=== PATIENT | female | born 1960 | race Two or more races ===

== ENCOUNTER 2019-06-18 20:04 | Emergency (ER) | payer BC, OTHER ==
[~2019-06-18] VITALS: Ht 147.3 cm; Wt 52.2 kg
[2019-06-18 21:41] LABS: Basophils # (auto) 0 10 ^3/uL (0-0.2); Basophils % (auto) 0.4 % (0.0-2.0); Eosinophils # (auto) 0.1 10 ^3/uL (0-0.8); Eosinophils % (auto) 1.2 % (0.0-7.0); Hematocrit 42.1 % (36.0-46.0); Lymphocytes # (auto) 1.5 10 ^3/uL (0.4-5.4); Lymphocytes % (auto) 13.8 % (10.0-50.0); Mean Corpuscular Hemoglobin 30.2 pg (28.0-32.0); Mean Corpuscular Hgb Conc. 33.3 g/dL (32.0-36.0); Mean Corpuscular Volume 90.7 fL (80.0-100.0); Monocytes # (auto) 0.7 10 ^3/uL (0-1.3); Monocytes % (auto) 6.2 % (0.0-12.0); Neutrophils # (auto) 8.8 10 ^3/uL (1.6-8.6); Neutrophils % (auto) 78.4 % (37.0-80.0); Nucleated Red Blood Cells % 0.1 %; Platelet Count (auto) 266 10^3/uL (140-450); Red Blood Cells 4.64 10^6/uL (4.0-5.20); Red Cell Distribution Width 12.9 % (11.8-14.3); White Blood Cell 11.2 10^3/uL (4.4-10.8)
[2019-06-18 22:02] LABS: Albumin 3.7 g/dL (3.4-5.0); Calcium 8.7 mg/dL (8.5-10.1); Potassium 3.8 mmol/L (3.5-5.1)
[2019-06-18 22:05] LABS: BUN/Creatinine Ratio 20.8; Bilirubin, Total 0.3 mg/dL (0.2-1.0); Total Protein 7.6 g/dL (6.4-8.2)
[2019-06-18 22:35] VITALS: BP 113/72
[2019-06-18 22:43] LABS: Urine Bacteria NONE SEEN /hpf (None Seen); Urine Blood TRACE /uL (Negative); Urine Mucus FEW (None Seen); Urine Specific Gravity 1.031 (1.001-1.035); Urine WBC <1 /hpf (0 - 5)
[2019-06-18] MEDS ORDERED: LIDOCAINE VISCOUS 2% 15ML UD PO ONE (22:45)
[2019-06-18] MEDS ORDERED: ALUM & MAG HYDROX-SIMETH LIQ(MAALOX) 30 ML PO ONE (22:45)
[2019-06-18] MEDS ORDERED: DONNATAL 5ml ORAL Elix (BELLADONNA ALK-PHENOBARB) PO ONE (22:45)
== END 2019-06-18 23:44 | disposition home or self-care (01) ==
LOC: ER 20:05
DX: R10.9 Unspecified abdominal pain (principal); R11.0 Nausea; Z88.6 Allergy status to analgesic agent
CPT/HCPCS: 36415; 74176; 80053; 81001; 85025

== ENCOUNTER 2022-09-08 06:18 | Day surgery (SDC) | payer BC ==
[~2022-09-08] VITALS: Ht 147.3 cm; Wt 50.8 kg
[~2022-09-08 06:18] MED LIST: ALBU0.084 IN; ALBUAER3 IN; DIPH25CA66 PO; IBUP-1678 PO; MAGN400T40 OR; MISC1TAB27 PO; MULT1TAB70 PO; MULT1TAB97 PO; OMEGCAP2 PO; POTA-220 PO; TRIA0.02 EX; [UNRECOGNIZED DRUG - CODE] PO
[2022-09-08] MEDS ORDERED: DexAMETHasone SOD PHOS 4 MG/1ML SDV INJ ONE (06:47)
[2022-09-08] MEDS ORDERED: EPINEPHrine HCL 1 MG/1 ML AMP ONE (06:47)
[2022-09-08] MEDS ORDERED: BUPIVACAINE 0.25% INJ 50ML VIAL ONE (06:48)
[2022-09-08] MEDS ORDERED: SODIUM CHLORIDE LOCK 10 ML ONE (06:52)
[2022-09-08] MEDS ORDERED: PROPOFOL 10 MG/ML 20 ML IV ONE (06:59)
[2022-09-08] MEDS ORDERED: ONDANSETRON HCL 4 MG/2 ML VIAL ONE (07:00)
[2022-09-08] MEDS ORDERED: KETOROLAC TROMETH 30 MG/ML 1ML VIAL ONE (07:00)
[2022-09-08] MEDS ORDERED: DexAMETHasone SOD PHOS 10MG/1ML VIAL INJ ONE (07:00)
[2022-09-08] MEDS ORDERED: GLYCOPYRROLATE 0.2 MG/ML 1ML VIAL ONE (07:00)
[2022-09-08] MEDS ORDERED: LIDOCAINE 2% (LOCAL ANESTH.) PF 5ml SDV ONE (07:00)
[2022-09-08] MEDS ORDERED: ceFAZolin 1GM/50ML 100 ML IV ONE (07:27)
[2022-09-08] MEDS ORDERED: fentaNYL CITRATE 100 MCG/2 ML VL ONE (07:44)
[2022-09-08] MEDS ORDERED: ePHEDrine SULFATE 50 MG/ML AMP ONE (07:57)
[2022-09-08] MEDS ORDERED: BUPIVACAINE HCL 0.25% P/F 10 ML VIAL ONE (08:39)
[2022-09-08] MEDS: HYDROmorphone HCL 2 MG/ML VL/or syr IV PRN ×2 (09:13→09:25)
[2022-09-08] MEDS ORDERED: oxyCODONE HCL 5MG TAB PO PRN (09:15)
[2022-09-08] MEDS ORDERED: ePHEDrine SULFATE 50 MG/ML AMP IV PRN (09:15)
[2022-09-08] MEDS ORDERED: ONDANSETRON HCL 4 MG/2 ML VIAL IV PRN (09:15)
[2022-09-08] MEDS ORDERED: MEPERIDINE HCL (25 MG/ML) 1ML VIAL IM ONE (09:15)
[2022-09-08] MEDS ORDERED: NALOXONE HCL 0.4 MG/ML VIAL IV PRN (09:15)
[2022-09-08] MEDS ORDERED: LABETALOL HCL 5 MG/ML 4ML SYRINGE IV PRN (09:15)
[2022-09-08] MEDS ORDERED: FLUMAZENIL 0.1 MG/ML INJ 10ML MDV IV PRN (09:15)
[2022-09-08] MEDS ORDERED: fentaNYL CITRATE 100 MCG/2 ML VL IV PRN (09:15)
[2022-09-08] MEDS ORDERED: hydrALAZINE HCL 20 MG/ML VL IV PRN (09:15)
[2022-09-08 10:25] VITALS: BP 122/75; PULSE 76; RESP 14; O2SAT 99
== END 2022-09-08 10:25 | disposition home or self-care (01) ==
LOC: SUR 06:18
PROVIDERS: ATTEND Orthopaedic Surgery
DX: S76.312A Strain of muscle, fascia and tendon of the posterior muscle group at thigh level, left thigh, initial encounter (principal); M70.62 Trochanteric bursitis, left hip; X58.XXXA Exposure to other specified factors, initial encounter; Y93.89 Activity, other specified; Y92.89 Other specified places as the place of occurrence of the external cause; Y99.8 Other external cause status
CPT/HCPCS: 27062; 27299; C1713; J0171; J0690; J1100; J1170; J1885; J2001; J2175; J2405; J2704; J3010; J3490